=== PATIENT | male | born 1995 | race African-American/Black ===

== ENCOUNTER 2021-02-10 17:20 | Emergency (ER) | payer SELFPAY ==
[~2021-02-10] VITALS: Ht 182.9 cm; Wt 95.0 kg
[2021-02-10] MEDS ORDERED: KETOROLAC 30MG/ML VIAL IV STA (19:53)
[2021-02-10] MEDS ORDERED: SODIUM CHLORIDE 0.9% 1,000 ML IV ONE (20:00)
[2021-02-10 21:12] LABS: CLARITY URINE CLEAR (CLEAR); KETONES URINE TRACE (NEGATIVE); LEUKOCYTE ESTERASE URINE NEGATIVE (NEGATIVE); NITRITE URINE NEGATIVE (NEGATIVE); OCCULT BLOOD URINE NEGATIVE (NEGATIVE); PROTEIN URINE 1+ (NEGATIVE); SPECIFIC GRAVITY URINE 1.042 (1.005-1.030)
[2021-02-10 21:14] LABS: COLOR URINE DARK YELLOW (YELLOW)
[2021-02-10 21:17] LABS: *COCAINE SCREEN URINE NEGATIVE (NEGATIVE)
[2021-02-10 21:18] LABS: *AMPHETAMINES SCREEN URINE NEGATIVE (NEGATIVE); *BARBITURATES SCREEN URINE NEGATIVE (NEGATIVE); *BENZODIAZEPINES SCREEN URINE NEGATIVE (NEGATIVE); CANNABINOID URINE SCREEN PRESUMTIVE POSITIVE (NEGATIVE); METHADONE URINE SCREEN NEGATIVE (NEGATIVE); OPIATES URINE SCREEN NEGATIVE (NEGATIVE); PHENCYCLIDINE URINE SCREEN NEGATIVE (NEGATIVE)
[2021-02-10 21:53] LABS: CHLORIDE 104 mEq/L (98-107)
[2021-02-10 21:56] LABS: BASOPHILS % 0.8 % (0.0-2.0); EOSINOPHILS % 1.4 % (0.0-5.0); HEMOGLOBIN. 14.4 g/dL (14.0-18.0); LYMPHOCYTES % 27.1 % (20.0-50.0); MEAN CORPUSCULAR HEMOGLOBIN 29.2 pg (28.0-32.0); MEAN CORPUSCULAR VOLUME 87.2 fL (80.0-94.0); MEAN PLATELET VOLUME 7.8 fl (7.4-10.4); MONOCYTES % 11.5 % (2.0-8.0); NEUTROPHILS % 59.2 % (40.0-76.0); PLATELET 251 x1000/uL (130-400); RED BLOOD CELL COUNT 4.93 mill/uL (4.7-6.1); RED CELL DISTRIBUTION WIDTH 14.9 % (11.6-14.6)
[2021-02-10 21:58] LABS: ETHANOL BLOOD < 10 mg/dL
[2021-02-10 22:07] LABS: PROTHROMBIN TIME 10.9 sec (9.6-11.0)
[2021-02-10] MEDS ORDERED: FAMO-135 MT (22:10)
[2021-02-10] MEDS ORDERED: ONDA4TAB5 MT (22:10)
[2021-02-10 22:45] VITALS: BP 138/70
== END 2021-02-10 22:52 | disposition home or self-care (01) ==
LOC: ER 17:20
DX: R11.2 Nausea with vomiting, unspecified (principal); R10.84 Generalized abdominal pain; J45.909 Unspecified asthma, uncomplicated; F20.9 Schizophrenia, unspecified
CPT/HCPCS: 36415; 80053; 80305; 80320; 81003; 83690; 85025; 85610; 96361; 96374; 99283; J1885; J7030; G0480